=== PATIENT | female | born 1960 | race Caucasian/White ===

== ENCOUNTER → 2024-04-18 06:52 | Outpatient (REF) | payer OTHER, SELFPAY | LOC: WDC 06:52 | PROVIDERS: ATTENDING PHYSICIAN Obstetrics & Gynecology; FAMILY PHYSICIAN Family Medicine | DX: Z12.31 Encounter for screening mammogram for malignant neoplasm of breast (principal) | CPT/HCPCS: 77063; 77067 ==

== ENCOUNTER → 2025-04-03 08:00 | Outpatient (REF) | payer OTHER, SELFPAY | LOC: HWEVLT 08:00 | PROVIDERS: ATTENDING PHYSICIAN Radiology Diagnostic Radiology | DX: I83.893 Varicose veins of bilateral lower extremities with other complications (principal) | CPT/HCPCS: 93970 ==

== ENCOUNTER → 2025-04-19 10:37 | Outpatient (REF) | payer OTHER, SELFPAY | LOC: WDC 10:37 | PROVIDERS: ATTENDING PHYSICIAN Obstetrics & Gynecology; FAMILY PHYSICIAN Family Medicine; REFERRING PHYSICIAN Chiropractor | DX: Z12.31 Encounter for screening mammogram for malignant neoplasm of breast (principal); M99.03 Segmental and somatic dysfunction of lumbar region | CPT/HCPCS: 72110 ==